=== PATIENT | female | born 1985 | race Caucasian/White ===

== ENCOUNTER 2016-10-09 14:26 | Emergency (ER) | payer OTHER ==
[~2016-10-09] VITALS: Ht 157.5 cm; Wt 87.1 kg
[2016-10-09 15:27] LABS: BASOPHIL % 0.3 % (0-2); PLATELET COUNT 256 x10^3mcL (130-400); RED CELL DISTRIBUTION WIDTH 14.3 % (11.5-14.5)
[2016-10-09 15:28] LABS: CALCIUM 8.6 mg/dL (8.5-10.1); CARBON DIOXIDE 28.5 mmol/L (21-32); CHLORIDE SERUM 105 mmol/L (98-107); CREATININE SERUM 0.8 mg/dL (0.6-1.0); GFR1 > 60 mL/min; GLUCOSE SERUM 104 mg/dL (74-106); POTASSIUM SERUM 4.1 mmol/L (3.5-5.1); SODIUM SERUM 141 mmol/L (136-145)
[2016-10-09 15:32] LABS: ALBUMIN 3.7 g/dL (3.4-5.0); ALKALINE PHOSPHATASE 77 U/L (46-116); ALT/SGPT 21 U/L (14-59); AST/SGOT 14 U/L (15-37); BILIRUBIN TOTAL 0.69 mg/dL (0.20-1.00); TOTAL PROTEIN, SERUM 7.5 g/dL (6.4-8.2)
[2016-10-09 16:26] VITALS: BP 123/95
== END 2016-10-09 16:27 | disposition home or self-care (01) ==
LOC: ED 14:26
PROVIDERS: Emergency Medicine
DX: R10.31 Right lower quadrant pain (principal); R03.0 Elevated blood-pressure reading, without diagnosis of hypertension; Z79.899 Other long term (current) drug therapy
CPT/HCPCS: J1885; Q0162

== ENCOUNTER 2017-01-11 18:01 | Emergency (ER) | payer OTHER ==
[~2017-01-11] VITALS: Ht 157.5 cm; Wt 92.5 kg
[2017-01-11 19:23] LABS: BASOPHIL % 0.3 % (0-2); PLATELET COUNT 237 x10^3mcL (130-400); RED CELL DISTRIBUTION WIDTH 13.9 % (11.5-14.5)
[2017-01-11 19:28] LABS: CALCIUM 8.8 mg/dL (8.5-10.1); CARBON DIOXIDE 29.3 mmol/L (21-32); CHLORIDE SERUM 107 mmol/L (98-107); CREATININE SERUM 0.8 mg/dL (0.6-1.0); GFR1 > 60 mL/min; GLUCOSE SERUM 97 mg/dL (74-106); POTASSIUM SERUM 4.4 mmol/L (3.5-5.1); SODIUM SERUM 144 mmol/L (136-145)
[2017-01-11 19:33] LABS: ALBUMIN 3.5 g/dL (3.4-5.0); ALKALINE PHOSPHATASE 88 U/L (46-116); ALT/SGPT 18 U/L (14-59); AST/SGOT 11 U/L (15-37); BILIRUBIN TOTAL 0.3 mg/dL (0.20-1.00); TOTAL PROTEIN, SERUM 7.1 g/dL (6.4-8.2)
[2017-01-11 20:27] VITALS: BP 119/84
== END 2017-01-11 20:27 | disposition home or self-care (01) ==
LOC: ED 18:01
PROVIDERS: Emergency Medicine
DX: R07.89 Other chest pain (principal); M25.512 Pain in left shoulder
CPT/HCPCS: 36415; 85378; J1885

== ENCOUNTER 2017-01-30 07:38 | Emergency (ER) | payer OTHER ==
[~2017-01-30] VITALS: Ht 157.5 cm; Wt 91.8 kg
[2017-01-30 08:40] LABS: BASOPHIL % 0.3 % (0-2); PLATELET COUNT 230 x10^3mcL (130-400); RED CELL DISTRIBUTION WIDTH 13.8 % (11.5-14.5)
[2017-01-30 08:44] LABS: UA SPECIFIC GRAVITY 1.025 (1.005-1.035); microscopic required? YES; urine erythrocyte TRACE (NEGATIVE)
[2017-01-30 08:53] LABS: CALCIUM 8.5 mg/dL (8.5-10.1); CHLORIDE SERUM 105 mmol/L (98-107); CREATININE SERUM 0.7 mg/dL (0.6-1.0); GFR1 > 60 mL/min; GLUCOSE SERUM 90 mg/dL (74-106); POTASSIUM SERUM 4.4 mmol/L (3.5-5.1); SODIUM SERUM 138 mmol/L (136-145)
[2017-01-30 08:57] LABS: ALBUMIN 3.4 g/dL (3.4-5.0); ALKALINE PHOSPHATASE 75 U/L (46-116); ALT/SGPT 19 U/L (14-59); AST/SGOT 14 U/L (15-37); BILIRUBIN TOTAL 1.1 mg/dL (0.20-1.00); TOTAL PROTEIN, SERUM 7.4 g/dL (6.4-8.2)
[2017-01-30 13:43] VITALS: BP 123/85
== END 2017-01-30 13:59 | disposition home or self-care (01) ==
LOC: ED 07:38
PROVIDERS: Emergency Medicine
DX: K57.32 Diverticulitis of large intestine without perforation or abscess without bleeding (principal)
CPT/HCPCS: J0696; J1170; J1885; J2405; J7030

== ENCOUNTER 2017-01-30 19:34 | Inpatient (IN) | payer OTHER ==
[~2017-01-30] VITALS: Ht 157.5 cm; Wt 93.0 kg
[2017-01-30 20:56] LABS: CALCIUM 8.3 mg/dL (8.5-10.1); CARBON DIOXIDE 25.7 mmol/L (21-32); CHLORIDE SERUM 105 mmol/L (98-107); CREATININE SERUM 0.6 mg/dL (0.6-1.0); GFR1 > 60 mL/min; GLUCOSE SERUM 89 mg/dL (74-106); POTASSIUM SERUM 4.8 mmol/L (3.5-5.1); SODIUM SERUM 139 mmol/L (136-145)
[2017-01-30 20:58] LABS: BASOPHIL % 0.3 % (0-2); PLATELET COUNT 230 x10^3mcL (130-400); RED CELL DISTRIBUTION WIDTH 14.3 % (11.5-14.5)
[2017-01-30 21:00] LABS: ALBUMIN 3.3 g/dL (3.4-5.0); ALKALINE PHOSPHATASE 66 U/L (46-116); ALT/SGPT 19 U/L (14-59); AMYLASE 83 U/L (25-115); AST/SGOT 12 U/L (15-37); BILIRUBIN TOTAL 1.03 mg/dL (0.20-1.00); LIPASE 154 IU/L (73-393); TOTAL PROTEIN, SERUM 7.1 g/dL (6.4-8.2)
[2017-01-30 23:01] VITALS: BP 125/80
[2017-01-31 00:29] LABS: CHOLESTEROL/HDL RATIO 3.6
[2017-01-31 00:49] LABS: FREE T4 1.11 ng/dL (0.76-1.46); FREE THYROXINE INDEX 3.1 ug/dL (1.4-4.5); T4(THYROXINE) 7.4 ug/dL (4.7-13.3)
[2017-01-31 01:42] LABS: T3 TOTAL 0.77 ng/mL
[2017-01-31 05:13] VITALS: BP 11/63; BP 111/63
[2017-01-31 06:04] LABS: microscopic required? NO
[2017-01-31 06:08] LABS: BASOPHIL % 0.3 % (0-2); PLATELET COUNT 212 x10^3mcL (130-400); RED CELL DISTRIBUTION WIDTH 13.9 % (11.5-14.5)
[2017-01-31 06:23] LABS: CARBON DIOXIDE 24.8 mmol/L (21-32); CHLORIDE SERUM 104 mmol/L (98-107); CREATININE SERUM 0.5 mg/dL (0.6-1.0); GFR1 > 60 mL/min; GLUCOSE SERUM 96 mg/dL (74-106); POTASSIUM SERUM 3.7 mmol/L (3.5-5.1); SODIUM SERUM 139 mmol/L (136-145)
[2017-01-31 08:57] VITALS: BP 110/66
[2017-01-31 09:04] LABS: UA SPECIFIC GRAVITY 1.025 (1.005-1.035); urine erythrocyte NEGATIVE (NEGATIVE)
[2017-01-31 09:48] LABS: AMPHETAMINE QUAL UR NONE DETECTED (NEG <=1000)
[2017-01-31 13:16] VITALS: BP 115/73
[2017-01-31 17:55] VITALS: BP 115/71; BP 120/49
[2017-01-31 21:16] VITALS: BP 112/78
[2017-02-01 05:59] VITALS: BP 111/69
[2017-02-01 06:20] LABS: BASOPHIL % 0.3 % (0-2); PLATELET COUNT 219 x10^3mcL (130-400); RED CELL DISTRIBUTION WIDTH 13.9 % (11.5-14.5)
[2017-02-01 06:29] LABS: CALCIUM 8.2 mg/dL (8.5-10.1); CARBON DIOXIDE 26.2 mmol/L (21-32); CHLORIDE SERUM 107 mmol/L (98-107); CREATININE SERUM 0.6 mg/dL (0.6-1.0); GFR1 > 60 mL/min; GLUCOSE SERUM 83 mg/dL (74-106); POTASSIUM SERUM 4.1 mmol/L (3.5-5.1); SODIUM SERUM 142 mmol/L (136-145)
[2017-02-01 09:58] VITALS: BP 131/99
[2017-02-01] MEDS ORDERED: FLA500 PO (12:12)
[2017-02-01] MEDS ORDERED: LEVAQUIN500 M1 PO (12:16)
[2017-02-01] MEDS ORDERED: LAC PO (12:18)
[2017-02-01 14:43] VITALS: BP 114/71
[2017-02-01 18:01] VITALS: BP 108/71
[2017-02-01 21:10] VITALS: BP 130/64
[2017-02-02 05:51] VITALS: BP 103/55
[2017-02-02 07:01] LABS: BASOPHIL % 0.4 % (0-2); PLATELET COUNT 245 x10^3mcL (130-400); RED CELL DISTRIBUTION WIDTH 14.3 % (11.5-14.5)
[2017-02-02 07:15] LABS: CALCIUM 8.3 mg/dL (8.5-10.1); CARBON DIOXIDE 28.9 mmol/L (21-32); CHLORIDE SERUM 106 mmol/L (98-107); CREATININE SERUM 0.6 mg/dL (0.6-1.0); GFR1 > 60 mL/min; GLUCOSE SERUM 91 mg/dL (74-106); POTASSIUM SERUM 4.1 mmol/L (3.5-5.1); SODIUM SERUM 141 mmol/L (136-145)
[2017-02-02 10:00] VITALS: BP 119/75
[2017-02-02 16:07] VITALS: BP 119/75
== END 2017-02-02 17:30 | disposition home or self-care (01) | DRG 244 ==
LOC: ED 19:34 → DU 21:24
PROVIDERS: Emergency Medicine; Family Medicine; ADMIT Family Medicine
DX: K57.32 Diverticulitis of large intestine without perforation or abscess without bleeding (principal); E44.0 Moderate protein-calorie malnutrition; E78.00 Pure hypercholesterolemia, unspecified; Z53.29 Procedure and treatment not carried out because of patient's decision for other reasons; E66.9 Obesity, unspecified; Z68.37 Body mass index [BMI] 37.0-37.9, adult
CPT/HCPCS: 83880; 84439; J0744; J1170; J1956; J2270; J2405; J3490; J7030

== ENCOUNTER 2017-05-14 06:56 | Inpatient (IN) | payer OTHER ==
[~2017-05-14] VITALS: Ht 160 cm; Wt 89.9 kg
[~2017-05-14 06:56] MED LIST: FLA500 PO; LAC PO; LEVAQUIN500 M1 PO
--- NOTE | 2017-05-14 07:17 | NUR ---
TO ER LOBBY IN MILD DISTRESS, PENDING BED AVAIL.
--- NOTE | 2017-05-14 08:17 | NUR ---
PT BIB SELF C/C LT ABD PAIN X [address] TO SIL[facility]IO
--- NOTE | 2017-05-14 09:26 | NUR ---
DR CHE AT BEDSIDE TO SILVIO
[2017-05-14 09:53] LABS: BASOPHIL % 0.5 % (0-2); PLATELET COUNT 243 x10^3mcL (130-400); RED CELL DISTRIBUTION WIDTH 14.2 % (11.5-14.5)
--- NOTE | 2017-05-14 09:58 | NUR ---
PLEASE ENTER FULL NAMES OF CREDIT ADMINISTRATION OFFICER/RN Patient data collected by (CREDIT ADMINISTRATION OFFICER):XIMENA BALBUENA Assessment reviewed and completed by (RN): ALISON POP
[2017-05-14 10:04] LABS: CALCIUM 8.7 mg/dL (8.5-10.1); CARBON DIOXIDE 28.4 mmol/L (21-32); CHLORIDE SERUM 104 mmol/L (98-107); CREATININE SERUM 0.6 mg/dL (0.6-1.0); GFR1 > 60 mL/min; GLUCOSE SERUM 86 mg/dL (74-106); POTASSIUM SERUM 3.5 mmol/L (3.5-5.1); SODIUM SERUM 138 mmol/L (136-145)
[2017-05-14 10:08] LABS: ALBUMIN 3.7 g/dL (3.4-5.0); ALKALINE PHOSPHATASE 68 U/L (46-116); ALT/SGPT 21 U/L (14-59); AMYLASE 89 U/L (25-115); AST/SGOT 14 U/L (15-37); BILIRUBIN TOTAL 1.09 mg/dL (0.20-1.00); LIPASE 129 IU/L (73-393); TOTAL PROTEIN, SERUM 7.9 g/dL (6.4-8.2)
--- NOTE | 2017-05-14 10:50 | NUR ---
PT TAKEN TO RADIOLOGY FOR CT
--- NOTE | 2017-05-14 11:15 | NUR ---
BACK FROM CT
--- NOTE | 2017-05-14 13:15 | NUR ---
RECEIVED FROM TARI COOL AT THIS TIME.
--- NOTE | 2017-05-14 13:15 | NUR ---
PT ADMIT TO TELE ROOM 203B GAVE REPORT TO TC
--- NOTE | 2017-05-14 13:15 | NUR ---
RECEIVED REPORT FROM XIMENA FROM ER AT THIS TIME
[2017-05-14 13:58] LABS: PHOSPHOROUS 3.4 mg/dL (2.5-4.9)
[2017-05-14 14:08] LABS: FREE T4 1.14 ng/dL (0.76-1.46); FREE THYROXINE INDEX 3.1 ug/dL (1.4-4.5); T4(THYROXINE) 8.4 ug/dL (4.7-13.3)
[2017-05-14 14:11] LABS: CHOLESTEROL/HDL RATIO 4.5
[2017-05-14 14:34] VITALS: BP 125/71
--- NOTE | 2017-05-14 14:42 | NUR ---
RECEIVED PATIENT FROM ED VIA GUERNEY, PATIENT ALERT AND ORIENTED, TELE # 33 SR, IV ACCESS TO RAC WNL, C/O PAIN TO ABD WILL MEDICATE ORDERED, ORIENTED PATIENT TO ROOM AND SURROUNDINGS, BED IN LOW POSITION, BED RAILS UP X 2, CALL LIGHT WITHIN REACH, WILL ENDORSE CARE TO PRIMARY NURSE LETI COOL
[2017-05-14 14:45] VITALS: BP 125/71
--- NOTE | 2017-05-14 16:01 | NUR ---
PATIENT C/O PAIN TO LUQ 6/10 SHARP WORSE WITH MOVEMENT. TORADOL 30 MG IVP GIVEN. WILL CONTINUE TO MONITOR.
[2017-05-14 17:10] LABS: T3 TOTAL 1.17 ng/mL
[2017-05-14 17:25] VITALS: BP 100/52
--- NOTE | 2017-05-14 18:00 | NUR ---
PATIENT STATES PAIN DECRASED TO 4/10. PATIENT RESTING IN BED, NO DISTRESS NOTED. VISITOR AT THE BEDSIDE.
--- NOTE | 2017-05-14 20:39 | NUR ---
PT RESTING IN BED WATCHING TV. REPORTS MILD ABD PAIN CURRENTLY CONTROLLED BY NORCO. BOWEL SOUNDS HYPOACTIVE, SLIGHT TENDERNESS UPON PALPATION IN UPPER LT QUADRANT. TELE #33, SR 66. NO C/O CP AT THIS TIME, RESP EVEN AND UNLABORED, NO REPORT OF SOB AT THIS TIME. LUNG SOUNDS CTA, ON RA. IV INFUSING TO RAC NA @100ML/HR. NO REDNESS, SWELLING OR PAIN NOTED AT THIS TIME. CALL LIGHT WITHIN REACH, BED IN LOWEST POSITION, WILL CONTINUE TO MONITOR.
[2017-05-14 21:05] VITALS: BP 113/69
--- NOTE | 2017-05-14 21:15 | NUR ---
PT REPORTS PAIN INCREASING, WORSENING WHEN MOVING. WILL MEDICATE W/ TORADOL PER ORDER.
--- NOTE | 2017-05-14 22:00 | NUR ---
PT RESTING WELL IN BED, EASY TO AROUSE, STATES PAIN IS UNDER CONTROL. CALL LIGHT WITHIN REACH, BED IN LOWEST POSITION. WILL CONTINUE TO MONITOR.
--- NOTE | 2017-05-15 05:05 | NUR ---
PT RESTING WELL THROUGHOUT SHIFT, MEDICATED X1 W/ TORADOL FOR LUQ ABD PAIN. IV INFUSING TO RAC @ 90ML/HR. NO REDNESS, SWELLING OR PAIN PRESENT. TWO DOSES OF FLAGYL GIVEN DURING SHIFT. COMFORT AND CARE MEASURES PROVIDED FOR, CALL LIGHT WITHIN REACH, BED IN LOWEST POSITION, WILL CONTINUE TO MONITOR.
[2017-05-15 05:48] VITALS: BP 107/73
[2017-05-15 06:30] LABS: CALCIUM 8.1 mg/dL (8.5-10.1); CARBON DIOXIDE 27.3 mmol/L (21-32); CHLORIDE SERUM 107 mmol/L (98-107); CREATININE SERUM 0.5 mg/dL (0.6-1.0); GFR1 > 60 mL/min; GLUCOSE SERUM 83 mg/dL (74-106); POTASSIUM SERUM 3.8 mmol/L (3.5-5.1); SODIUM SERUM 141 mmol/L (136-145)
[2017-05-15 06:44] LABS: BASOPHIL % 0.4 % (0-2); PLATELET COUNT 217 x10^3mcL (130-400); RED CELL DISTRIBUTION WIDTH 14.5 % (11.5-14.5)
--- NOTE | 2017-05-15 07:15 | NUR ---
RECEIVED REPORT FROM NOC SILVINA DUMONT AT THIS TIME. PATIENT IS RESTING IN BED, WITH EYES CLOSED. TELE # [address] ON ROOM AIR, NO DISTRESS NOTED. IV TO RAC INTACT. SCDS IN PLACE CALL LIGHT WITH IN REACH.
--- NOTE | 2017-05-15 07:26 | NUR ---
PT RESTING IN BED, ALL CARE ENDORSED TO DAY SHIFT NURSE. CALL LIGHT WITHIN REACH, BED IN LOWEST POSITION.
[2017-05-15 09:30] VITALS: BP 113/66
--- NOTE | 2017-05-15 09:30 | NUR ---
PATIENT TOLERATING LIQUID DIET WELL. DENIES N/V/D, AND PAIN.
--- NOTE | 2017-05-15 12:05 | NUR ---
ROUNDS MADE AT THIS TIME. RESIDENT TEAM, AND PRIMARY RN PRESENT. PLAN OF CARE IS DISCUSSED. QUESTIONS AND CONCERNS ADDRESSED. PATIENT VERBALIZES UNDERSTANDING.
[2017-05-15 13:35] VITALS: BP 115/68
[2017-05-15 14:51] LABS: urine erythrocyte NEGATIVE (NEGATIVE)
[2017-05-15 15:07] LABS: microscopic required? YES
--- NOTE | 2017-05-15 15:11 | NUR ---
IN TO SEE PATIENT AND GIVE DUE MEDICATIONS (SEE EMAR). PATIENT STATES SHE HAS A HEADACHE DULL 3/10, WILL MEDICATE ORDRED PRN.
--- NOTE | 2017-05-15 15:35 | NUR ---
PAGED DR. WALTERS REGARDING ADVANCEMENT OF DIET ORDER
[2017-05-15 17:21] VITALS: BP 101/60
--- NOTE | 2017-05-15 18:07 | NUR ---
PATIENT EATING DINNER. PATIENT STATES SHE FELT "A LITTLE NAUSEA BUT IT WENT AWAY" WHILE EATING A REG DIET.
--- NOTE | 2017-05-15 19:35 | NUR ---
PT RESTING IN BED WITH SIGNIFICANT OTHER AT BEDSIDE. NO C/O PAIN AT THIS TIME, PT STATES FEELING BETTER TODAY. NO C/O FORD AT THIS TIME. RESP EVEN AND UNLABORED, ON RA. NO C/O SOB AT THIS TIME. ABD SOFT, NONDISTENDED, DENIES ABD PAIN AT THIS TIME. IV INFUSING TO RAC NS @ 90ML/HR. NO REDNESS, SWELLING OR PAIN NOTED AT THIS TIME. TELE # 33, SR 96. NO C/O CP AT THIS TIME. CALL LIGHT WITHIN REACH, BED IN LOWEST POSITION, WILL CONTINUE TO MONITOR.
[2017-05-15 21:32] VITALS: BP 99/62
--- NOTE | 2017-05-16 01:53 | NUR ---
PT RESTING WELL IN BED W/ MINIMAL INTERRUPTIONS. NO C/O PAIN AT THIS TIME, CALL LIGHT WITHIN REACH, BED IN LOWEST POSITION, WILL CONTINUE TO MONITOR.
--- NOTE | 2017-05-16 05:05 | NUR ---
PT RESTED WELL DURING THE NIGHT WITH MINIMAL INTERRUPTIONS. NO C/O PAIN THROUGHOUT SHIFT. IV INFUSING TO RAC @ 90ML/HR. NO REDNESS, SWELLING OR PAIN NOTED. DENIES DYSURIA AT THIS TIME, CALL LIGHT WITHIN REACH, BED IN LOWEST POSITION, WILL CONTINUE TO MONITOR
[2017-05-16 05:09] VITALS: BP 96/63
--- NOTE | 2017-05-16 07:20 | NUR ---
RECEIVED PATIENT SITTING UP IN BED A/O X4, CLEAR SPEECH, NO NEURO DEFICITS NOTED. TELE # [address], DENIES CHEST PAIN. BREATHING EVEN UNLABBORED ON RA, DENIES SOB, NO DISTRESS NOTED. ABD SOFT/ROUND, BS ACTIVE X4, DENIES N/V OR ABD PAIN. PER PATIENT SHE HAD A BM THIS AM. TOLERATING REGULAR DIET WELL. IV TO RAC INTACT INFUSING NS AT 90 ML/HR FREE FROM REDNESS AND INFILTRATION. INSTRUCTED TO CALL FOR ASSISTANCE IF NEEDED. CALL LIGHT WITHIN REACH, BED IN LOW POSITION. WILL CONTINUE TO MONITOR.
--- NOTE | 2017-05-16 07:31 | NUR ---
PT RESTING IN BED, ENDORSED ALL CARE TO DAY SHIFT NURSE, CALL LIGHT WITHIN REACH, BED IN LOWEST POSITION.
--- NOTE | 2017-05-16 09:04 | NUR ---
ROUNDS MADE- DR. SCHAEFFER, RESIDENT TEAM, CHARGE NURSE AND PRIMARY NURSE AT BEDSIDE. PLAN OF CARE REVIEWED WITH PATIENT- PLAN FOR DISCHARGE HOME TODAY. ALL QUESTIONS AND CONCERNS ADDRESSED. WILL MONITOR.
[2017-05-16 09:25] VITALS: BP 124/82
[2017-05-16 09:34] LABS: BASOPHIL % 0.3 % (0-2); PLATELET COUNT 240 x10^3mcL (130-400)
[2017-05-16 09:40] LABS: RED CELL DISTRIBUTION WIDTH 14.6 % (11.5-14.5)
[2017-05-16 09:53] LABS: CALCIUM 8.3 mg/dL (8.5-10.1); CARBON DIOXIDE 24.2 mmol/L (21-32); CHLORIDE SERUM 106 mmol/L (98-107); CREATININE SERUM 0.8 mg/dL (0.6-1.0); GFR1 > 60 mL/min; GLUCOSE SERUM 180 mg/dL (74-106); POTASSIUM SERUM 3.4 mmol/L (3.5-5.1); SODIUM SERUM 140 mmol/L (136-145)
[2017-05-16] MEDS ORDERED: LAC PO (11:46)
[2017-05-16] MEDS ORDERED: TYL325 PO (11:48)
[2017-05-16 12:15] VITALS: BP 124/82
--- NOTE | 2017-05-16 13:01 | NUR ---
PATIENT TO BE DISCHARGED HOME PER MD ORDER. DISCHARGE INSTRUCTIONS, BELONGINGS LIST, AND EDUCATION GIVEN TO PATIENT. VERBALIZED UNDERSTANDING TO FOLLOW UP WITH PCP ON 05/19/17. ALL QUESTIONS AND CONCERNS ADDRESSED. IV TO RAC REMOVED, CATH INTACT. ID BANDS REMOVED, TELE MONITOR REMOVED. PATIENT ASSISTED DOWN TO LOBBY ACCOMPANIED BY NURSE AID. ALL PERSONAL BELONGINGS SENT HOME WITH PATIENT.
[2017-05-16] MEDS ORDERED: LEVOFLOXACIN500 M1 PO (14:27)
[2017-05-16] MEDS ORDERED: FLA250 PO (14:27)
[2017-05-16] MEDS ORDERED: BD LACTINEX1.4 MG PO (14:27)
== END 2017-05-16 13:00 | disposition home or self-care (01) | DRG 244 ==
LOC: ED 06:56 → DU 12:29 → MU 05-16 07:51
PROVIDERS: Specialist; Student in an Organized Health Care Education/Training Program; ADMIT Family Medicine
DX: K57.32 Diverticulitis of large intestine without perforation or abscess without bleeding (principal); N17.0 Acute kidney failure with tubular necrosis; E78.5 Hyperlipidemia, unspecified; E66.9 Obesity, unspecified; Z68.35 Body mass index [BMI] 35.0-35.9, adult; N92.6 Irregular menstruation, unspecified
CPT/HCPCS: 83880; 84439; J1170; J1885; J1956; J2405; J3490; J7030

== ENCOUNTER 2018-01-05 07:49 | Emergency (ER) | payer OTHER ==
[~2018-01-05] VITALS: Ht 160 cm; Wt 95.7 kg
[~2018-01-05 07:49] MED LIST changes: +BD LACTINEX1.4 MG PO; +FLA250 PO; +LEVOFLOXACIN500 M1 PO; +TYL325 PO
[2018-01-05 07:52] VITALS: Ht 160 cm; Wt 95.7 kg
[2018-01-05 09:06] LABS: BASOPHIL % 0.3 % (0-2); PLATELET COUNT 237 x10^3mcL (130-400); RED CELL DISTRIBUTION WIDTH 14.1 % (11.5-14.5)
[2018-01-05 09:11] LABS: CALCIUM 8.3 mg/dL (8.5-10.1); CARBON DIOXIDE 26.8 mmol/L (21-32); CHLORIDE SERUM 103 mmol/L (98-107); CREATININE SERUM 0.5 mg/dL (0.6-1.0); GFR1 > 60 mL/min; GLUCOSE SERUM 94 mg/dL (74-106); POTASSIUM SERUM 3.5 mmol/L (3.5-5.1); SODIUM SERUM 138 mmol/L (136-145)
[2018-01-05 09:18] LABS: ALBUMIN 3.7 g/dL (3.4-5.0); ALKALINE PHOSPHATASE 82 U/L (46-116); ALT/SGPT 21 U/L (14-59); AST/SGOT 12 U/L (15-37); BILIRUBIN TOTAL 1.7 mg/dL (0.20-1.00); LIPASE 134 IU/L (73-393); TOTAL PROTEIN, SERUM 7.8 g/dL (6.4-8.2)
[2018-01-05 11:21] VITALS: BP 151/93
== END 2018-01-05 11:21 | disposition home or self-care (01) ==
LOC: ED 07:49
PROVIDERS: Emergency Medicine
DX: K57.92 Diverticulitis of intestine, part unspecified, without perforation or abscess without bleeding (principal)
CPT/HCPCS: J1885; J2405; J7030

== ENCOUNTER 2018-06-11 07:48 | Emergency (ER) | payer OTHER ==
[~2018-06-11] VITALS: Ht 162.6 cm; Wt 97.1 kg
[2018-06-11 07:58] VITALS: BP 138/117; Ht 162.6 cm; Wt 97.1 kg
== END 2018-06-11 09:20 | disposition home or self-care (01) ==
LOC: ED 07:48
DX: S39.012A Strain of muscle, fascia and tendon of lower back, initial encounter (principal); X58.XXXA Exposure to other specified factors, initial encounter; Y93.89 Activity, other specified; Y92.89 Other specified places as the place of occurrence of the external cause; Y99.8 Other external cause status
CPT/HCPCS: J2270

== ENCOUNTER 2018-08-24 14:49 | Emergency (ER) | payer OTHER ==
[~2018-08-24] VITALS: Ht 160 cm; Wt 97.1 kg
[2018-08-24 14:50] VITALS: Ht 160 cm; Wt 97.1 kg
[2018-08-24 15:23] LABS: BASOPHIL % 0.2 % (0-2); PLATELET COUNT 265 x10^3mcL (130-400); RED CELL DISTRIBUTION WIDTH 14.4 % (11.5-14.5)
[2018-08-24 15:36] LABS: CALCIUM 9.1 mg/dL (8.5-10.1); CARBON DIOXIDE 29.5 mmol/L (21-32); CHLORIDE SERUM 102 mmol/L (98-107); CREATININE SERUM 0.6 mg/dL (0.6-1.0); GFR1 > 60 mL/min; GLUCOSE SERUM 106 mg/dL (74-106); SODIUM SERUM 140 mmol/L (136-145)
[2018-08-24 15:41] LABS: ALBUMIN 3.7 g/dL (3.4-5.0); ALKALINE PHOSPHATASE 93 U/L (46-116); ALT/SGPT 30 U/L (14-59); BILIRUBIN TOTAL 0.5 mg/dL (0.20-1.00); LIPASE 158 IU/L (73-393)
[2018-08-24 15:42] LABS: TOTAL PROTEIN, SERUM 8.3 g/dL (6.4-8.2)
[2018-08-24 15:43] LABS: POTASSIUM SERUM 3.5 mmol/L (3.5-5.1)
[2018-08-24 15:53] LABS: AST/SGOT 19 U/L (15-37)
[2018-08-24 16:41] VITALS: BP 139/76
== END 2018-08-24 16:35 | disposition home or self-care (01) ==
LOC: ED 14:49
PROVIDERS: Emergency Medicine
DX: K57.30 Diverticulosis of large intestine without perforation or abscess without bleeding (principal)
CPT/HCPCS: J2270; J7030

== ENCOUNTER 2019-01-15 09:59 | Emergency (ER) | payer OTHER ==
[~2019-01-15] VITALS: Ht 160 cm; Wt 96.6 kg
[2019-01-15 10:08] VITALS: Ht 160 cm; Wt 96.6 kg
[2019-01-15 12:22] VITALS: BP 132/81
== END 2019-01-15 11:30 | disposition home or self-care (01) ==
LOC: ED 09:59
DX: G43.909 Migraine, unspecified, not intractable, without status migrainosus (principal)
CPT/HCPCS: J0780; J1100; Q0162

== ENCOUNTER 2019-08-28 08:13 | Emergency (ER) | payer OTHER ==
[~2019-08-28] VITALS: Ht 160 cm; Wt 93.4 kg
[2019-08-28 08:31] VITALS: Ht 160 cm; Wt 93.4 kg
[2019-08-28 09:39] VITALS: BP 136/69
== END 2019-08-28 09:39 | disposition home or self-care (01) ==
LOC: ED 08:13
DX: M54.5 Low back pain (principal)
CPT/HCPCS: J1885

== ENCOUNTER 2020-04-23 08:50 | Inpatient (IN) | payer OTHER ==
[~2020-04-23] VITALS: Ht 160 cm; Wt 95.7 kg
[2020-04-23 08:51] VITALS: Ht 160 cm; Wt 95.7 kg
--- NOTE | 2020-04-23 09:10 | NUR ---
PT IN ED FOR RUQ PAIN THAT RADIATES TO PELVIC AREA SINCE 03/20/20. PAIN 5/10 AND WORSENS WITH MOVEMENT AND EATING. PT DENIES NAUSEA DURING ASSESSMENT BUT STATES SHE VOMITED TWICE ON WEDNESDAY. LAST BM THIS AM, LMP SOMETIME IN AUGUST PT STATES SHE HAS IRREGULAR PERIODS, URINE COLLECTED. ABDOMEN SOFT ROUND AND IS TENDER TO TOUCH. VITAL SIGNS STABLE, NO ACUTE DISTRESS NOTED, AWAITING MSE
[2020-04-23 10:03] LABS: CALCIUM 8.4 mg/dL (8.5-10.1); CARBON DIOXIDE 26.3 mmol/L (21-32); CHLORIDE SERUM 108 mmol/L (98-107); CREATININE SERUM 0.6 mg/dL (0.6-1.0); GFR1 > 60 mL/min; GLUCOSE SERUM 100 mg/dL (74-106); POTASSIUM SERUM 3.3 mmol/L (3.5-5.1); SODIUM SERUM 138 mmol/L (136-145)
[2020-04-23 10:06] LABS: BASOPHIL % 0.4 % (0-2); PLATELET COUNT 243 x10^3mcL (130-400); RED CELL DISTRIBUTION WIDTH 13.7 % (11.5-14.5)
[2020-04-23 10:07] LABS: ALKALINE PHOSPHATASE 59 U/L (46-116); ALT/SGPT 22 U/L (14-59); AST/SGOT 14 U/L (15-37); BILIRUBIN TOTAL 0.76 mg/dL (0.20-1.00); LIPASE 147 IU/L (73-393); TOTAL PROTEIN, SERUM 7.2 g/dL (6.4-8.2)
[2020-04-23 10:08] LABS: ALBUMIN 3.2 g/dL (3.4-5.0)
--- NOTE | 2020-04-23 10:20 | NUR ---
PAIN DECREASED TO 2/10, MORPHINE EFFECTIVE IN PAIN MANAEGEMT, AWAITING RESULTS PT SITTING UP IN BED, VSS, CALL LIGHT WITHIN REACH MONITOR
--- NOTE | 2020-04-23 10:32 | NUR ---
PT AMBULATED TO RESTROOM, PAIN IS TOLLERABLE AT THE MOMENT PER PT. AWAITING ULTRASOUND RESULTS, WILL MONITOR
[2020-04-23] MEDS ORDERED: NORCO1 TA2 PO (10:44)
--- NOTE | 2020-04-23 11:54 | NUR ---
REPORT CALLED TO ESHA COOL
[2020-04-23 13:04] VITALS: BP 130/55
[2020-04-23 13:27] VITALS: BP 130/55
[2020-04-23 17:03] VITALS: BP 120/74
--- NOTE | 2020-04-23 18:26 | NUR ---
CONTINUE WITH PAIN MANAGEMENT AND IV HYDRATION, MAINTAINED ON NPO STATUS.
--- NOTE | 2020-04-23 19:48 | NUR ---
PT RECEIVED LYING IN BED SUPINE WATCHING TV. A/OX4, CALM AND COOPERATIVE. RESPIRATIONS UNLABORED, CTA, RA, DENIE SOB. TELE 1, SR, HR 88. DENIES CHEST PAIN. PT REPORTS DIZZINESS WITH AMBULATION, EDUCATED TO SIT AT EDGE OF BED 2-3 MINUTES PRIOR TO GOING FROM LYING TO STANDING, VERBALIZED UNDERSTANDING. PERIPHERAL PULSES STRONG, NO EDEMA NOTED. ABD SOFT AND ROUND, BS ACTIVE, LBM 10/20. PT REPORTS MILD ABD PAIN /, DENIES PAIN MEDS AT THIS TIME. DENIES N/V CURRENTLY. NO URINARY ISSUES. IV RAC 20G, PATENT, RUNNING NS@80ML/HR, NO COMPLICATIOSN TO SITE. BED IN LOWEST POSITION, SIDE RAILS X 2, CALL LIGHT WITHINT REACH
[2020-04-23 20:30] VITALS: BP 111/69
--- NOTE | 2020-04-24 01:29 | NUR ---
PT SLEEPIN ON L SIDE. REPSIRATIONS UNLABORED. NON VERBAL PAIN INDICATORS ABSENT. IV RAC RUNNING NS@80ML/HR, NO COMPLICATIONS TO SITE. BED IN LOWEST POSITION, SIDE RAILS X 2, CALL LIGHT WITHIN REACH
[2020-04-24 05:19] VITALS: BP 110/56
--- NOTE | 2020-04-24 06:06 | NUR ---
PT LYING BED SLEEPING IN SUPINE POSITION. RESPIRATIONS UNLABORED. NON VERBAL PAIN INDICATORS ABSENT. IV RAC RUNNING NS@80ML/HR, NO COMPLICATIONS TO SITE. PT C/O PAIN X 2 DURING SHIFT, TO ABD AND FORD. NORCO AND TYLENOL ADMINISTERED X1 EACH. PT REPORTED NAUSEA X 1, ZOFRAN ADMSINTERD OPRDERED, EFFECTIVE. PT DENIES VOMITING. URINATED X 2. NO BM DURING SHIFT. PT MAINTAINED NPO X MEDS. ALL NEEDS MET. BED IN LOWEST POSITON, SIDE RAILS X 2, CALL LIGHT WITHIN REACH
[2020-04-24 06:34] LABS: BASOPHIL % 0.4 % (0-2); PLATELET COUNT 238 x10^3mcL (130-400); RED CELL DISTRIBUTION WIDTH 13.7 % (11.5-14.5)
[2020-04-24 06:47] LABS: ALKALINE PHOSPHATASE 55 U/L (46-116); ALT/SGPT 26 U/L (14-59); AST/SGOT 16 U/L (15-37); BILIRUBIN TOTAL 0.75 mg/dL (0.20-1.00); CALCIUM 8.2 mg/dL (8.5-10.1); CARBON DIOXIDE 27.2 mmol/L (21-32); CHLORIDE SERUM 104 mmol/L (98-107); CREATININE SERUM 0.6 mg/dL (0.6-1.0); GFR1 > 60 mL/min; GLUCOSE SERUM 92 mg/dL (74-106); POTASSIUM SERUM 3.9 mmol/L (3.5-5.1); SODIUM SERUM 139 mmol/L (136-145); TOTAL PROTEIN, SERUM 6.8 g/dL (6.4-8.2)
[2020-04-24 06:53] LABS: ALBUMIN 2.9 g/dL (3.4-5.0)
--- NOTE | 2020-04-24 07:35 | NUR ---
RECEIVED PT FROM PM NURSE. PT IS AWAKE AND RESTING COMFORTABLY AT THIS TIME. NO FACIAL DISTRESS OR SOB NOTED. PT IS A/OX4. ABLE TO MAKE NEEDS KNWON. TELE #1. DENIES CP/PRESSURE. PALPABLE PULSES. NO EDEMA NOTED. LUNG SOUNDS CTA. BREATHING E/U ON RA. ACTIVE BSX4. ABD SOFT AND NON DISTENDED. VOIDS FREELY. AMBULATORY BASELINE. SKIN INTACT. C/O ABD PAIN. WILL MEDICATE PER EMAR. IV 20G TO RAC CURRENTLY INFUSING NS AT 80CC/HR. BED AT LOWEST POSITION. CALL BUTTON WITHIN REACH. WILL CONTINUE TO MONITOR.
[2020-04-24 08:36] VITALS: BP 126/74
[2020-04-24 12:00] VITALS: BP 111/65
--- NOTE | 2020-04-24 14:08 | NUR ---
DR STERN HERE TO SEE PT BY BEDSIDE. DR STERN SAID HE WILL ADVANCE PATIENT'S DIET TO SEE HOW SHE TOLERATES IT. WILL MONITOR HER INTAKE DURING MEAL TIME.
--- NOTE | 2020-04-24 14:44 | NUR ---
PATIENT TOLERATED THE CLEAR LIQUID DIET WELL. SPOKE TO DR STERN ABOUT PATIENT'S PROGRESS, HE SAID HE WILL ADVANCE PATIENT'S DIET EVEN FURTHER FOR DINNER TO SEE HOW SHE DOES.
[2020-04-24 16:45] VITALS: BP 106/61
[2020-04-24] MEDS ORDERED: ACETAMINOPHEN-H1 TA1 PO (18:01)
[2020-04-24] MEDS ORDERED: METRONIDAZOLE500 M1 PO (18:02)
[2020-04-24] MEDS ORDERED: CIPRO500 MG PO (18:02)
[2020-04-24 18:22] VITALS: BP 106/61
== END 2020-04-24 19:29 | disposition home or self-care (01) | DRG 244 ==
LOC: ED 08:50 → DU 11:04 → MU 11:04 → DU 12:23
PROVIDERS: ADMIT Hospitalist; ATTEND Emergency Medicine
DX: K57.92 Diverticulitis of intestine, part unspecified, without perforation or abscess without bleeding (principal); E66.9 Obesity, unspecified; E87.6 Hypokalemia; Z68.37 Body mass index [BMI] 37.0-37.9, adult; Z71.3 Dietary counseling and surveillance; Z20.828 Contact with and (suspected) exposure to other viral communicable diseases
CPT/HCPCS: G0378; J0744; J2270; J2405; J2543; J3490; J7030